=== PATIENT | female | born 1950 | race Caucasian/White ===

== ENCOUNTER 2017-01-20 12:21 | Emergency (ER) | payer MEDICARE, OTHER ==
[2017-01-20 12:32] VITALS: BP 151/93
--- NOTE | 2017-01-20 13:21 | UC ---
Shortness of Breath HPI - HPI Summary HPI Summary: PT HAS HAD COUGH AND CONGESTION FOR ABOUT 5 DAYS. POSSIBLE LOW GRADE TEMP AT HOME. TODAY WOKE UP AND FELT WORSE - SLIGHT SOB, NAUSEA AND SWEATS. PAIN WITH COUGHING BETWEEN SHOULDER BLADES AND IN UPPER CHEST/LEFT SHOULDER. SCRATCHY THROAT WITH COUGH. - History of Current Complaint Chief Complaint: UCRespiratory Stated Complaint: THROAT TIGHT COUGH SHOULDER PAIN Time Seen by Provider: 01/20/17 13:20 Hx Obtained From: Patient Onset/Duration: Sudden Onset, Lasting Hours, Still Present Timing: Constant Current Severity: Moderate - 5/10 Dyspnea At: Rest - WITH COUGH Aggrevating Factors: Deep Breaths Alleviating Factors: Nothing Associated Signs & Symptoms: Positive: Cough (Nonproductive), Chest Pain w/Cough , Fever, Diaphoresis, Nasal Congestion. 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 hysterectomy - Family History Known Family History: Negative: Hypertension - Social History Alcohol Use: Rare Substance Use Type: None Smoking Status (MU): Never Smoked Tobacco Review of Systems Constitutional: Fever, Chills ENT: Sore Throat, Nasal Discharge Respiratory: Shortness Of Breath, Cough Cardiovascular: Chest Pain Gastrointestinal: Other - NAUSEA Musculoskeletal: Myalgia Neurological: Headache All Other Systems Reviewed And Are Negative: Yes Physical Exam Triage Information Reviewed: Yes Appearance: Well-Appearing, No Pain Distress, Well-Nourished Vital Signs: Initial Vital Signs Temp 99 F 01/20/17 12:27 Pulse 97 01/20/17 12:27 Resp 20 01/20/17 12:27 BP 151/93 01/20/17 12:27 Pulse Ox 97 01/20/17 12:27 Vital Signs Reviewed: Yes Eyes: Positive: Conjunctiva Clear ENT: Positive: Hearing grossly normal, Pharynx normal, TMs normal Neck: Positive: Supple, Nontender, No Lymphadenopathy Respiratory Exam: Normal Cardiovascular Exam: Normal Abdomen Description: Positive: Soft Musculoskeletal: Positive: No Edema Neurological: Positive: Alert Psychological: Positive: Age Appropriate Behavior Skin: Negative: rashes Diagnostics - Laboratory Diagnostic Studies Completed/Ordered: RAPID FLU - POSITIVE FLU A - Radiology CXR Xray Interpretation: No Acute Changes Radiology Interpretation Completed By: Radiologist - EKG Cardiac Rate: NL - 87 BPM Cardiac Rhythm: Sinus: Normal Ectopy: None ST Segment: Normal Shortness of Breath Dx - Course Course Of Treatment: DISCUSSED TRANSFER TO ER GIVEN PT WITH SOB, FATIGUE AND OVERALL MALAISE. PT DECLINES. ADVISED PT TO GO TO ER WITHOUT FAIL IF SX WORSEN. - Differential Dx/Diagnosis Provider Diagnoses: INFLUENZA A Discharge - Discharge Plan Condition: Stable Disposition: HOME Prescriptions: Oseltamivir CAP* [Tamiflu CAP*] 75 mg PO BID #10 cap Patient Education Materials: Influenza (ED) Referrals: Alton Farrar MD [Medical Doctor] - If Needed Additional Instructions: RAPID FLU POSITIVE FOR FLU A. CHEST XRAY UNREMARKABLE. EKG UNREMARKABLE. OTC TYLENOL FOR DISCOMFORT. GO TO THE ER WITHOUT FAIL IF YOU DEVELOP WORSENING SHORTNESS OF BREATH, CP, NAUSEA OR ANY OTHER CONCERNING SYMPTOMS.
--- NOTE | 2017-01-20 14:31 | RAD ---
INDICATION: Cough, shortness of breath. Low-grade fever. Fatigue. History of pulmonary embolism. COMPARISON: September 23, 2010 CT pulmonary angiogram. TECHNIQUE: Dual energy PA and routine lateral views of the chest were obtained. REPORT: Minimal prominence of the interstitial markings. No alveolar consolidation, focal pulmonary lesion, pleural effusion, pneumothorax. Negative for cardiomegaly. Unremarkable central pulmonary vasculature. Mildly tortuous descending thoracic aorta. Unremarkable soft tissue contours and osseous structures for age. IMPRESSION: No evidence for pneumonia. No evidence for acute intrathoracic disease.
== END 2017-01-20 15:09 | disposition home or self-care (01) ==
LOC: UCEAST 12:21
DX: J10.1 Influenza due to other identified influenza virus with other respiratory manifestations (principal); M25.519 Pain in unspecified shoulder; R03.0 Elevated blood-pressure reading, without diagnosis of hypertension; Z86.711 Personal history of pulmonary embolism; Z90.81 Acquired absence of spleen; Z90.710 Acquired absence of both cervix and uterus
CPT/HCPCS: 71020; 87502; 93005; 99212; G0463

== ENCOUNTER 2017-08-30 19:21 | Emergency (ER) | payer MEDICARE, OTHER ==
[2017-08-30 22:55] VITALS: BP 148/68
== END 2017-08-31 00:05 | disposition left against medical advice (07) ==
LOC: ED 19:21
DX: R51 Headache (principal); Z53.21 Procedure and treatment not carried out due to patient leaving prior to being seen by health care provider

== ENCOUNTER 2023-04-06 09:38 | Observation (INO) ==
[2023-04-06 10:23] LABS: ABS Basophils 0.1 10^3/uL (0.0-0.1); ABS Lymphocytes 1.4 10^3/uL (1.0-4.8); ABS Monocytes 0.8 10^3/uL (0.0-0.9); ABS Nucleated RBC 0.02 10^3/ul; Eosinophil % 0.2 %; Hematocrit 39.3 % (35-45); Hemoglobin 12.8 g/dL (11.5-14.3); Mean Corpuscular Hemoglobin 30.5 pg (27-33); Mean Corpuscular Hgb Conc 32.7 g/dL (31-36); Mean Corpuscular Volume 93.4 fL (80-97); Mean Platelet Volume 8.5 fL (7.5-11.2); Nucleated Red Blood Cells % 0.1 /100 WBC (0.0-0.4); Platelet Count 559 10^3/uL (150-450); Red Blood Count 4.21 10^6/uL (3.63-4.92); Red Cell Distribution Width 14.3 % (12-17); White Blood Count 20.4 10^3/uL (3.8-11.8)
[2023-04-06 10:27] LABS: Urine Appearance Cloudy; Urine Bilirubin Negative (Negative); Urine Blood Negative (Negative); Urine Color Yellow; Urine Glucose Negative (Negative); Urine Ketones Negative (Negative); Urine Nitrite Negative (Negative); Urine Protein Negative (Negative); Urine Specific Gravity 1.015 (1.002-1.030); Urine Urobilinogen Negative (Negative)
[2023-04-06 10:55] LABS: ALT 9 U/L (7-52); Albumin 4.2 g/dL (3.2-5.2); Albumin/Globulin Ratio 1.2 (1-3); Alkaline Phosphatase 85 U/L (35-149); Blood Urea Nitrogen 10 mg/dL (6-24); C Reactive Protein 71.54 mg/L (<8.01); CO2 Carbon Dioxide 23 mmol/L (22-32); Calcium 9.6 mg/dL (8.6-10.3); Chloride 104 mmol/L (101-111); Creatinine, Serum 0.74 mg/dL (0.51-0.95); Globulin 3.4 g/dL (2-4); Glucose 122 mg/dL (70-100); Sodium 137 mmol/L (135-145); Total Protein 7.6 g/dL (6.4-8.9); eGFR CKD-EPI 85.9 (>60)
[2023-04-06 10:57] LABS: Anion Gap 10 mmol/L (2-16)
[2023-04-06] MEDS ORDERED: Iohexol 350 (CONTRAST) 500 ML MDV IV ONE ×2 (11:37→12:38)
[2023-04-06] MEDS ORDERED: Ondansetron 4 mg VIAL 2 MG/ML 2 ml VIAL IV ONE (11:46)
[2023-04-06] MEDS ORDERED: Lactated Ringers 1000 ml BAG 1,000 ML IV ONE (11:46)
[2023-04-06] MEDS ORDERED: Acetaminophen IV 1 GM/100ML 1,000 MG/100 ML BAG IV ONE (11:46)
[2023-04-06] MEDS ORDERED: Piperacillin/Tazobac ADVAN 3.375 GM in NS 0.9% 100 ml BAG 100 ML IV ONE ×2 (12:50→15:26)
[2023-04-06] MEDS ORDERED: Albuterol HFA INHALER 8 gm MDI INH PRN (15:03)
[2023-04-06] MEDS ORDERED: Zosyn per Pharmacy NOTE FOLLOW UP SCH (16:00)
[2023-04-06] MEDS: D5W 1/2 NS 1000 ml BAG 1,000 ML IV SCH ×2 (16:14→22:47)
[2023-04-06 16:15] LABS: Lipase 13 U/L (11.0-82.0)
[2023-04-06] MEDS ORDERED: Enoxaparin 40 MG/0.4 ML SYR SUBCUT ONE (16:31)
[2023-04-06] MEDS ORDERED: Morphine 2 MG/ML SYRINGE IV SCH (17:00)
[2023-04-06] MEDS ORDERED: ZOSYN 3.375 GM Q8H per EXTENDED INFUSION IV SCH (17:00)
[2023-04-06 20:51] LABS: Direct Bilirubin Redraw 0.2 mg/dL (0.03-0.18); Potassium Redraw 3.9 mmol/L (3.5-5.0)
[2023-04-06 20:52] LABS: Direct Bilirubin 0.2 mg/dL (0.03-0.18); Indirect Bilirubin 1.5 mg/dL (0.3-1.0); Total Bilirubin 1.7 mg/dL (0.2-1.0)
[2023-04-06] MEDS ORDERED: Morphine 2 MG/ML SYRINGE IV PRN (21:30)
[2023-04-06] MEDS: Ondansetron 4 mg VIAL 2 MG/ML 2 ml VIAL IV PRN (21:56)
[2023-04-06] MEDS: Morphine 2 MG/ML SYRINGE IV PRN (22:07)
[2023-04-07] MEDS: ZOSYN 3.375 GM Q8H per EXTENDED INFUSION IV SCH ×4 (00:28→23:53)
[2023-04-07] MEDS: Morphine 2 MG/ML SYRINGE IV PRN ×2 (03:36→10:25)
[2023-04-07] MEDS ORDERED: Ondansetron 4 mg VIAL 2 MG/ML 2 ml VIAL IV ONE (03:39)
[2023-04-07 04:31] LABS: ABS Basophils 0.1 10^3/uL (0.0-0.1); ABS Eosinophils 0.1 10^3/uL (0.0-0.5); ABS Lymphocytes 1.6 10^3/uL (1.0-4.8); ABS Monocytes 0.4 10^3/uL (0.0-0.9); ABS Nucleated RBC 0.02 10^3/ul; Eosinophil % 0.6 %; Hematocrit 31.4 % (35-45); Hemoglobin 10.7 g/dL (11.5-14.3); Lymphocyte % 14.1 %; Mean Corpuscular Hemoglobin 31.2 pg (27-33); Mean Corpuscular Hgb Conc 34.2 g/dL (31-36); Mean Corpuscular Volume 91.1 fL (80-97); Mean Platelet Volume 8.3 fL (7.5-11.2); Nucleated Red Blood Cells % 0.2 /100 WBC (0.0-0.4); Platelet Count 451 10^3/uL (150-450); Red Blood Count 3.45 10^6/uL (3.63-4.92); Red Cell Distribution Width 14.2 % (12-17); White Blood Count 11.1 10^3/uL (3.8-11.8)
[2023-04-07 04:51] LABS: Calcium 8.2 mg/dL (8.6-10.3); Creatinine, Serum 0.78 mg/dL (0.51-0.95); Magnesium 1.8 mg/dL (1.9-2.7); Potassium 3.8 mmol/L (3.5-5.0); eGFR CKD-EPI 80.6 (>60)
[2023-04-07] MEDS: D5W 1/2 NS 1000 ml BAG 1,000 ML IV SCH ×2 (05:36→12:44)
[2023-04-07] MEDS ORDERED: Magnesium Sulfate 2 gm BAG 2 GM/50 ML BAG IVPB ONE (07:14)
[2023-04-07] MEDS: Mometasone/Formoter 100/5 MDI INH SCH ×2 (08:19→19:43)
[2023-04-07] MEDS ORDERED: Omeprazole 20 mg CAP (NF) PO SCH (09:00)
[2023-04-07] MEDS: Pantoprazole VIAL 40 MG VIAL IV SCH (09:05)
[2023-04-07] MEDS: Ondansetron 4 mg VIAL 2 MG/ML 2 ml VIAL IV PRN (10:23)
[2023-04-07] MEDS ORDERED: Prochlorperazine 5 mg/ml 2 ml VIAL (10 mg) IV ONE (12:35)
[2023-04-07] MEDS ORDERED: Ondansetron 4 mg VIAL 2 MG/ML 2 ml VIAL IV PRN (13:22)
[2023-04-07] MEDS ORDERED: Enoxaparin 40 MG/0.4 ML SYR SUBCUT SCH (16:30)
[2023-04-08 05:58] LABS: ABS Eosinophils 0.2 10^3/uL (0.0-0.5); ABS Lymphocytes 2.7 10^3/uL (1.0-4.8); ABS Neutrophils 3.3 10^3/uL (1.5-7.6); ABS Nucleated RBC 0.02 10^3/ul; Eosinophil % 2.5 %; Hemoglobin 10.3 g/dL (11.5-14.3); Lymphocyte % 37.3 %; Mean Corpuscular Hgb Conc 34.2 g/dL (31-36); Mean Corpuscular Volume 90.8 fL (80-97); Mean Platelet Volume 7.9 fL (7.5-11.2); Nucleated Red Blood Cells % 0.2 /100 WBC (0.0-0.4); Platelet Count 371 10^3/uL (150-450); Red Blood Count 3.31 10^6/uL (3.63-4.92); Red Cell Distribution Width 14.3 % (12-17); White Blood Count 7.2 10^3/uL (3.8-11.8)
[2023-04-08 06:29] LABS: Calcium 8.2 mg/dL (8.6-10.3); Creatinine, Serum 0.86 mg/dL (0.51-0.95); Magnesium 2.3 mg/dL (1.9-2.7); eGFR CKD-EPI 71.7 (>60)
[2023-04-08] MEDS: Pantoprazole VIAL 40 MG VIAL IV SCH (08:05)
[2023-04-08] MEDS: ZOSYN 3.375 GM Q8H per EXTENDED INFUSION IV SCH (08:05)
[2023-04-08] MEDS: Mometasone/Formoter 100/5 MDI INH SCH (08:16)
[2023-04-08] MEDS ORDERED: Calcium Carb (TUMS) 500 mg CHEW TAB PO ONE (11:34)
[2023-04-08 15:27] VITALS: BP 118/56
== END 2023-04-08 16:00 | disposition home or self-care (01) ==
LOC: EDHOLD 09:38 → ED 09:38 → SUATTDRO 14:52 → EDHOLD 20:39 → SSU 21:10
PROVIDERS: ADMIT Internal Medicine; ATTEND Internal Medicine

== ENCOUNTER 2023-07-16 17:24 | Inpatient (IN) ==
[2023-07-16] MEDS ORDERED: Lactated Ringers 1000 ml BAG 1,000 ML IV ONE (17:39)
[2023-07-16] MEDS ORDERED: Ondansetron ODT 4 mg TAB 4 MG TAB PO ONE (17:40)
[2023-07-16 21:27] LABS: ABS Basophils 0.2 10^3/uL (0.0-0.1); ABS Eosinophils 0.1 10^3/uL (0.0-0.5); ABS Lymphocytes 3.4 10^3/uL (1.0-4.8); ABS Monocytes 1.3 10^3/uL (0.0-0.9); ABS Neutrophils 11.5 10^3/uL (1.5-7.6); ABS Nucleated RBC 0.03 10^3/ul; Eosinophil % 0.5 %; Hematocrit 38.2 % (35-45); Hemoglobin 12.6 g/dL (11.5-14.3); Lymphocyte % 20.7 %; Mean Corpuscular Hemoglobin 29.1 pg (27-33); Mean Corpuscular Volume 88.3 fL (80-97); Mean Platelet Volume 8.5 fL (7.5-11.2); Nucleated Red Blood Cells % 0.2 /100 WBC (0.0-0.4); Platelet Count 626 10^3/uL (150-450); Red Blood Count 4.33 10^6/uL (3.63-4.92); Red Cell Distribution Width 17.3 % (12-17); White Blood Count 16.6 10^3/uL (3.8-11.8)
[2023-07-16 21:47] LABS: ALT 9 U/L (7-52); Albumin 4.2 g/dL (3.2-5.2); Albumin/Globulin Ratio 1.2 (1-3); Alkaline Phosphatase 60 U/L (35-149); Blood Urea Nitrogen 9 mg/dL (6-24); C Reactive Protein 9.38 mg/L (<8.01); CO2 Carbon Dioxide 20 mmol/L (22-32); Calcium 9.2 mg/dL (8.6-10.3); Chloride 103 mmol/L (101-111); Globulin 3.5 g/dL (2-4); Glucose 115 mg/dL (70-100); Lipase 16 U/L (11.0-82.0); Sodium 136 mmol/L (135-145); Total Protein 7.7 g/dL (6.4-8.9); eGFR CKD-EPI 59.9 (>60)
[2023-07-16 21:55] LABS: Anion Gap 13 mmol/L (2-16)
[2023-07-16] MEDS ORDERED: Iodixanol (CONTRAST) 320 MG/ML 100 ML SDV IV ONE (22:56)
[2023-07-17] MEDS ORDERED: Iodixanol (CONTRAST) 320 MG/ML 100 ML SDV IV ONE (00:34)
[2023-07-17] MEDS ORDERED: Piperacillin/Tazobac 3.375 BAG 3.375 GM/100 ML BAG IV ONE (01:02)
[2023-07-17] MEDS ORDERED: Ondansetron 4 mg VIAL 2 MG/ML 2 ml VIAL IV ONE (01:20)
[2023-07-17] MEDS ORDERED: Prochlorperazine 5 mg/ml 2 ml VIAL (10 mg) IV PRN (02:02)
[2023-07-17] MEDS ORDERED: Morphine 4 MG/ML VIAL (1 ml) IV PRN ×2 (02:02→20:30)
[2023-07-17] MEDS ORDERED: Albuterol HFA INHALER 8 gm MDI INH PRN (02:07)
[2023-07-17] MEDS ORDERED: Zosyn per Pharmacy NOTE FOLLOW UP SCH (03:00)
[2023-07-17] MEDS ORDERED: Lactated Ringers 1000 ml BAG 1,000 ML IV SCH (03:00)
[2023-07-17] MEDS: Ondansetron 4 mg VIAL 2 MG/ML 2 ml VIAL IV PRN ×3 (05:50→20:46)
[2023-07-17 06:18] LABS: Potassium Redraw 3.5 mmol/L (3.5-5.0)
[2023-07-17] MEDS: ZOSYN 3.375 GM Q8H per EXTENDED INFUSION IV SCH ×3 (07:48→22:28)
[2023-07-17] MEDS: Fluticasone NASAL SPRAY 50MCG 16 gm SPRAY BTL BOTH NARES SCH (08:43)
[2023-07-17] MEDS: Mometasone/Formoter 100/5 MDI INH SCH ×2 (08:43→19:28)
[2023-07-18] MEDS: ZOSYN 3.375 GM Q8H per EXTENDED INFUSION IV SCH ×3 (06:21→22:49)
[2023-07-18] MEDS ORDERED: Magnesium Hydroxide LIQ 30 ML UDC PO PRN (08:05)
[2023-07-18] MEDS: Mometasone/Formoter 100/5 MDI INH SCH ×2 (08:26→20:05)
[2023-07-18 08:31] LABS: Hematocrit 32.1 % (35-45); Hemoglobin 10.7 g/dL (11.5-14.3); Mean Corpuscular Hemoglobin 29.5 pg (27-33); Mean Corpuscular Hgb Conc 33.3 g/dL (31-36); Mean Corpuscular Volume 88.5 fL (80-97); Mean Platelet Volume 7.9 fL (7.5-11.2); Platelet Count 501 10^3/uL (150-450); Red Blood Count 3.63 10^6/uL (3.63-4.92); Red Cell Distribution Width 16.9 % (12-17)
[2023-07-18 08:48] LABS: Calcium 8.3 mg/dL (8.6-10.3); Creatinine, Serum 0.86 mg/dL (0.51-0.95); Magnesium 1.9 mg/dL (1.9-2.7); Potassium 4.3 mmol/L (3.5-5.0); eGFR CKD-EPI 71.7 (>60)
[2023-07-18] MEDS: Fluticasone NASAL SPRAY 50MCG 16 gm SPRAY BTL BOTH NARES SCH (09:22)
[2023-07-18] MEDS: Nystatin TOP POWDER 15 GM BTL TOPICAL SCH (22:48)
[2023-07-19] MEDS: ZOSYN 3.375 GM Q8H per EXTENDED INFUSION IV SCH ×3 (06:02→22:52)
[2023-07-19 07:38] LABS: Hematocrit 32.7 % (35-45); Hemoglobin 10.8 g/dL (11.5-14.3); Mean Corpuscular Hemoglobin 29.4 pg (27-33); Mean Corpuscular Hgb Conc 33.2 g/dL (31-36); Mean Corpuscular Volume 88.5 fL (80-97); Red Blood Count 3.69 10^6/uL (3.63-4.92); Red Cell Distribution Width 17.1 % (12-17); White Blood Count 9.6 10^3/uL (3.8-11.8)
[2023-07-19 07:39] LABS: Calcium 8.5 mg/dL (8.6-10.3); Creatinine, Serum 0.79 mg/dL (0.51-0.95); Potassium 3.8 mmol/L (3.5-5.0); eGFR CKD-EPI 79.4 (>60)
[2023-07-19] MEDS: Mometasone/Formoter 100/5 MDI INH SCH ×2 (07:52→19:38)
[2023-07-19] MEDS: Nystatin TOP POWDER 15 GM BTL TOPICAL SCH ×3 (07:55→22:52)
[2023-07-19 08:44] LABS: ABS Basophils 0.1 10^3/uL (0.0-0.1); ABS Eosinophils 0.3 10^3/uL (0.0-0.5); ABS Monocytes 1.9 10^3/uL (0.0-0.9); ABS Neutrophils 4.2 10^3/uL (1.5-7.6); ABS Nucleated RBC 0.03 10^3/ul; Eosinophil % 3.2 %; Lymphocyte % 31.7 %; Mean Platelet Volume 8.1 fL (7.5-11.2); Nucleated Red Blood Cells % 0.3 /100 WBC (0.0-0.4); Platelet Count 534 10^3/uL (150-450)
[2023-07-19] MEDS: Fluticasone NASAL SPRAY 50MCG 16 gm SPRAY BTL BOTH NARES SCH (09:48)
[2023-07-20 05:43] LABS: ABS Basophils 0.1 10^3/uL (0.0-0.1); ABS Eosinophils 0.3 10^3/uL (0.0-0.5); ABS Lymphocytes 3.6 10^3/uL (1.0-4.8); ABS Monocytes 1.2 10^3/uL (0.0-0.9); ABS Neutrophils 5.7 10^3/uL (1.5-7.6); ABS Nucleated RBC 0.02 10^3/ul; Eosinophil % 2.7 %; Hematocrit 33.3 % (35-45); Hemoglobin 11.1 g/dL (11.5-14.3); Lymphocyte % 33.4 %; Mean Corpuscular Hemoglobin 29.3 pg (27-33); Mean Corpuscular Hgb Conc 33.2 g/dL (31-36); Mean Corpuscular Volume 88.3 fL (80-97); Mean Platelet Volume 7.8 fL (7.5-11.2); Nucleated Red Blood Cells % 0.2 /100 WBC (0.0-0.4); Platelet Count 568 10^3/uL (150-450); Red Blood Count 3.78 10^6/uL (3.63-4.92); Red Cell Distribution Width 16.7 % (12-17); White Blood Count 10.9 10^3/uL (3.8-11.8)
[2023-07-20] MEDS: ZOSYN 3.375 GM Q8H per EXTENDED INFUSION IV SCH (05:52)
[2023-07-20 06:05] LABS: Calcium 9.1 mg/dL (8.6-10.3); Creatinine, Serum 0.78 mg/dL (0.51-0.95); Magnesium 1.9 mg/dL (1.9-2.7); eGFR CKD-EPI 80.6 (>60)
[2023-07-20] MEDS: Mometasone/Formoter 100/5 MDI INH SCH (08:14)
[2023-07-20] MEDS: Fluticasone NASAL SPRAY 50MCG 16 gm SPRAY BTL BOTH NARES SCH (08:30)
[2023-07-20] MEDS: Nystatin TOP POWDER 15 GM BTL TOPICAL SCH (08:30)
[2023-07-20] MEDS ORDERED: Magnesium Sulfate 2 gm BAG 2 GM/50 ML BAG IVPB ONE (09:00)
[2023-07-20 10:59] VITALS: BP 127/70
== END 2023-07-20 13:30 | disposition home or self-care (01) | DRG 392 ==
LOC: EDHOLD 17:24 → ED 17:24 → SUATTDRO 07-17 02:01 → SSU 07-17 13:58
PROVIDERS: ADMIT Student in an Organized Health Care Education/Training Program; ATTEND Hospitalist

== ENCOUNTER 2023-09-29 08:41 | Inpatient (IN) ==
[~2023-09-29 08:41] MED LIST: Naloxone 0.4 mg VIAL 0.4 mg/ml 1 ml VIAL IV PRN; Ondansetron 4 mg VIAL 2 MG/ML 2 ml VIAL IV PRN; fentaNYL 100 mcg/2 ml 50 MCG/ML VIAL IV PRN
[2023-09-29] MEDS ORDERED: Buffered Lidocaine 1% SYRIN 1 ml ONE (09:05)
[2023-09-29] MEDS ORDERED: Dexamethasone IV 4 MG/ML VIAL 1 ml VIAL ONE ×2 (09:33→10:13)
[2023-09-29 09:34] LABS: Rapid COVID-19 Molecular Undetected (Undetected)
[2023-09-29] MEDS ORDERED: Lidocaine 1% MPF 5 ML VIAL ONE (09:34)
[2023-09-29] MEDS ORDERED: Bupivacaine 0.5% 50 ML MDV VIAL ONE (09:34)
[2023-09-29] MEDS ORDERED: Midazolam 2 mg/2 ml VIAL 1 mg/ml 2 ml VIAL (2 mg) ONE (09:44)
[2023-09-29] MEDS ORDERED: Acetaminophen IV 1 GM/100ML 1,000 MG/100 ML BAG IV ONE (09:45)
[2023-09-29] MEDS: Buffered Lidocaine 1% SYRIN 1 ml INTRADERM ONE ×2 (09:49→15:54)
[2023-09-29] MEDS: Lactated Ringers 1000 ml BAG 1,000 ML IV SCH ×3 (09:50→18:24)
[2023-09-29] MEDS ORDERED: Heparin 5000 UNITS/ML 1 mL VIAL ONE (09:57)
[2023-09-29] MEDS ORDERED: Ertapenem 1 GM in NS 0.9% 50 ML IVPB ONE (10:00)
[2023-09-29] MEDS ORDERED: Propofol 10 MG/ML 20 ML BTL ONE (10:11)
[2023-09-29] MEDS ORDERED: fentaNYL 100 mcg/2 ml 50 MCG/ML VIAL ONE ×2 (10:12→15:57)
[2023-09-29] MEDS ORDERED: Lidocaine 2% PF 5 ML VIAL ONE (10:13)
[2023-09-29] MEDS ORDERED: Ondansetron 4 mg VIAL 2 MG/ML 2 ml VIAL ONE ×2 (10:13→16:06)
[2023-09-29] MEDS ORDERED: Rocuronium 50 mg VIAL 10 mg/ml 5 ml VIAL (50 mg) ONE ×2 (10:13→13:58)
[2023-09-29] MEDS ORDERED: HYDROmorphone 0.5 MG/0.5 ML SYRINGE ONE (11:31)
[2023-09-29] MEDS ORDERED: KETAMINE HCL 10 MG/ML 20 ml VIAL (200 MG) ONE (12:43)
[2023-09-29] MEDS ORDERED: HYDROmorphone 1 MG/1 ML SYRINGE ONE (16:06)
[2023-09-29] MEDS: HYDROmorphone 1 MG/1 ML SYRINGE IV PRN ×3 (16:10→18:19)
[2023-09-29] MEDS ORDERED: HYDROmorphone 1 MG/1 ML SYRINGE IV SLOW PU PRN (16:39)
[2023-09-29] MEDS ORDERED: HYDROmorphone 0.5 MG/0.5 ML SYRINGE IV SLOW PU PRN (16:39)
[2023-09-29] MEDS ORDERED: Albuterol HFA INHALER 8 gm MDI INH PRN (16:42)
[2023-09-29] MEDS: Pantoprazole VIAL 40 MG VIAL IV SCH (19:20)
[2023-09-29] MEDS: Acetaminophen IV 1 GM/100ML 1,000 MG/100 ML BAG IV SCH (19:21)
[2023-09-29] MEDS: Mometasone/Formoter 100/5 MDI INH SCH (20:59)
[2023-09-29] MEDS: Heparin 5000 UNITS/ML 1 mL VIAL SUBCUT SCH (22:50)
[2023-09-30] MEDS: Acetaminophen IV 1 GM/100ML 1,000 MG/100 ML BAG IV SCH ×4 (00:53→20:16)
[2023-09-30] MEDS: Lactated Ringers 1000 ml BAG 1,000 ML IV SCH ×2 (03:59→14:33)
[2023-09-30] MEDS: Heparin 5000 UNITS/ML 1 mL VIAL SUBCUT SCH ×3 (06:23→22:22)
[2023-09-30 06:27] LABS: ABS Lymphocytes 1.7 10^3/uL (1.0-4.8); ABS Monocytes 1.2 10^3/uL (0.0-0.9); ABS Neutrophils 16.4 10^3/uL (1.5-7.6); Hematocrit 27.7 % (35-45); Hemoglobin 9.1 g/dL (11.5-14.3); Lymphocyte % 8.8 %; Mean Corpuscular Hemoglobin 28.6 pg (27-33); Mean Corpuscular Hgb Conc 32.9 g/dL (31-36); Mean Corpuscular Volume 86.8 fL (80-97); Mean Platelet Volume 8.4 fL (7.5-11.2); Platelet Count 346 10^3/uL (150-450); Red Blood Count 3.19 10^6/uL (3.63-4.92); Red Cell Distribution Width 15.5 % (12-17); White Blood Count 19.3 10^3/uL (3.8-11.8)
[2023-09-30 06:39] LABS: Calcium 8.6 mg/dL (8.6-10.3); Creatinine, Serum 0.7 mg/dL (0.51-0.95); Magnesium 1.8 mg/dL (1.9-2.7); Phosphorus 4.9 mg/dL (2.5-5.0); Potassium 3.9 mmol/L (3.5-5.0); eGFR CKD-EPI 91.8 (>60)
[2023-09-30] MEDS: Mometasone/Formoter 100/5 MDI INH SCH ×2 (08:29→20:12)
[2023-09-30] MEDS ORDERED: Magnesium Sulfate 2 gm BAG 2 GM/50 ML BAG IVPB ONE (10:02)
[2023-09-30] MEDS: Fluticasone NASAL SPRAY 50MCG 16 gm SPRAY BTL BOTH NARES SCH (10:13)
[2023-09-30] MEDS: Ondansetron 4 mg VIAL 2 MG/ML 2 ml VIAL IV PRN (14:47)
[2023-09-30] MEDS: Pantoprazole VIAL 40 MG VIAL IV SCH (16:44)
[2023-09-30] MEDS ORDERED: Lactated Ringers 1000 ml BAG 500 ML IV ONE (16:52)
[2023-10-01] MEDS: Acetaminophen IV 1 GM/100ML 1,000 MG/100 ML BAG IV SCH ×4 (01:17→21:39)
[2023-10-01] MEDS: Lactated Ringers 1000 ml BAG 1,000 ML IV SCH (01:17)
[2023-10-01] MEDS: Heparin 5000 UNITS/ML 1 mL VIAL SUBCUT SCH ×3 (05:14→21:38)
[2023-10-01 05:47] LABS: ABS Basophils 0.1 10^3/uL (0.0-0.1); ABS Eosinophils 0.1 10^3/uL (0.0-0.5); ABS Lymphocytes 1.7 10^3/uL (1.0-4.8); ABS Monocytes 0.4 10^3/uL (0.0-0.9); ABS Neutrophils 11.4 10^3/uL (1.5-7.6); ABS Nucleated RBC 0.01 10^3/ul; Eosinophil % 0.8 %; Hematocrit 26.6 % (35-45); Hemoglobin 8.7 g/dL (11.5-14.3); Lymphocyte % 12.5 %; Mean Corpuscular Hemoglobin 28.7 pg (27-33); Mean Corpuscular Hgb Conc 32.7 g/dL (31-36); Mean Corpuscular Volume 87.9 fL (80-97); Mean Platelet Volume 8.5 fL (7.5-11.2); Nucleated Red Blood Cells % 0.1 %/100WBC (0.0-0.8); Platelet Count 281 10^3/uL (150-450); Red Blood Count 3.02 10^6/uL (3.63-4.92); Red Cell Distribution Width 15.5 % (12-17); White Blood Count 13.7 10^3/uL (3.8-11.8)
[2023-10-01 06:13] LABS: Calcium 8.1 mg/dL (8.6-10.3); Creatinine, Serum 0.78 mg/dL (0.51-0.95); Magnesium 2.2 mg/dL (1.9-2.7); Potassium 3.7 mmol/L (3.5-5.0); eGFR CKD-EPI 80.6 (>60)
[2023-10-01] MEDS: Mometasone/Formoter 100/5 MDI INH SCH ×2 (09:19→18:54)
[2023-10-01] MEDS: Fluticasone NASAL SPRAY 50MCG 16 gm SPRAY BTL BOTH NARES SCH (10:19)
[2023-10-01] MEDS: Ondansetron 4 mg VIAL 2 MG/ML 2 ml VIAL IV PRN (10:50)
[2023-10-01] MEDS: Pantoprazole VIAL 40 MG VIAL IV SCH (16:59)
[2023-10-02] MEDS: Ondansetron 4 mg VIAL 2 MG/ML 2 ml VIAL IV PRN ×3 (04:06→16:47)
[2023-10-02] MEDS: Acetaminophen IV 1 GM/100ML 1,000 MG/100 ML BAG IV SCH ×3 (06:19→21:33)
[2023-10-02] MEDS: Heparin 5000 UNITS/ML 1 mL VIAL SUBCUT SCH ×3 (06:22→21:33)
[2023-10-02] MEDS: Mometasone/Formoter 100/5 MDI INH SCH ×2 (06:47→19:38)
[2023-10-02] MEDS: Fluticasone NASAL SPRAY 50MCG 16 gm SPRAY BTL BOTH NARES SCH (09:27)
[2023-10-02] MEDS: Pantoprazole VIAL 40 MG VIAL IV SCH (17:25)
[2023-10-03] MEDS: Ondansetron 4 mg VIAL 2 MG/ML 2 ml VIAL IV PRN ×3 (01:18→20:18)
[2023-10-03] MEDS: Acetaminophen IV 1 GM/100ML 1,000 MG/100 ML BAG IV SCH ×2 (05:32→13:41)
[2023-10-03] MEDS: Heparin 5000 UNITS/ML 1 mL VIAL SUBCUT SCH ×3 (05:32→22:03)
[2023-10-03] MEDS: Mometasone/Formoter 100/5 MDI INH SCH ×2 (08:25→20:12)
[2023-10-03] MEDS: Fluticasone NASAL SPRAY 50MCG 16 gm SPRAY BTL BOTH NARES SCH (09:20)
[2023-10-03] MEDS: Pantoprazole VIAL 40 MG VIAL IV SCH (16:46)
[2023-10-03] MEDS ORDERED: Metoclopramide 5 MG/ML VIAL (10 mg) IV PRN (22:10)
[2023-10-03] MEDS: Prochlorperazine 5 mg/ml 2 ml VIAL (10 mg) IV PRN (23:00)
[2023-10-04] MEDS: Heparin 5000 UNITS/ML 1 mL VIAL SUBCUT SCH ×3 (06:06→23:15)
[2023-10-04] MEDS: Mometasone/Formoter 100/5 MDI INH SCH ×2 (08:18→19:59)
[2023-10-04] MEDS: Fluticasone NASAL SPRAY 50MCG 16 gm SPRAY BTL BOTH NARES SCH (10:10)
[2023-10-04] MEDS: Pantoprazole VIAL 40 MG VIAL IV SCH (17:09)
[2023-10-04] MEDS: Prochlorperazine 5 mg/ml 2 ml VIAL (10 mg) IV PRN (20:07)
[2023-10-05] MEDS: Mometasone/Formoter 100/5 MDI INH SCH ×2 (08:11→20:20)
[2023-10-05] MEDS: Fluticasone NASAL SPRAY 50MCG 16 gm SPRAY BTL BOTH NARES SCH (09:49)
[2023-10-05] MEDS: Pantoprazole VIAL 40 MG VIAL IV SCH (16:59)
[2023-10-06] MEDS: Mometasone/Formoter 100/5 MDI INH SCH (08:57)
[2023-10-06] MEDS: Fluticasone NASAL SPRAY 50MCG 16 gm SPRAY BTL BOTH NARES SCH (09:02)
[2023-10-06 14:38] VITALS: BP 127/70
== END 2023-10-06 15:58 | disposition home or self-care (01) | DRG 331 ==
LOC: AA 08:41 → SSU 18:26
PROVIDERS: ADMIT Surgery; ATTEND Surgery